=== PATIENT | female | born 1945 | race Caucasian/White ===

== ENCOUNTER 2016-10-25 05:10 | Day surgery (SDC) | payer OTHER ==
[~2016-10-25] VITALS: Ht 162.6 cm; Wt 77.1 kg
--- NOTE | ~2016-10-25 | O ---
[facility] [place] [address] OPERATIVE REPORT Name: CHENTE HAYES Room #: DEP [facility]..#: [id number] Admission: 10/25/16 Attend Phys: Liban Mallory MD Discharge: 10/25/16 Date of : 47 Report #: [id number] THIS REPORT FOR: //name// CC: Grant Mallory DATE OF SERVICE: 10/25/[address] Liban Mallory, Dr. Grant Mena. PREOPERATIVE DIAGNOSIS: A 5 cm x 3 cm skin lesion on the scalp. POSTOPERATIVE DIAGNOSIS: A 5 cm x 3 cm skin lesion on the scalp. PROCEDURE: Excision of 5 cm x 3 cm scalp lesion with complex layered closure. SURGEON: Liban Mallory M.D. ANESTHESIA: Local. DESCRIPTION OF PROCEDURE: The patient was brought to the operating room and placed on the operative table in the supine position. The scalp was prepped by trimming the hair around this lesion with a nate. I was able to trim some matted hair over this skin lesion using the scalp nate and this was included as part of the specimen. The area was then prepped and draped in a sterile fashion. Skin and subcutaneous tissue around this area was then infiltrated with 1% Xylocaine with epinephrine. An elliptical skin incision was performed around the lesion using #15 scalpel blade. Hemostasis obtained using the electrocautery. Dissection was carried down through subcutaneous tissue and around this lesion using the electrocautery. The lesion was removed and oriented for the pathologist with a double stranded nylon suture being anterior, single stranded nylon suture being to the right side of the lesion. This was then submitted to pathology for permanent study. The deep subcutaneous tissue was then reapproximated using simple interrupted 3-0 Vicryl sutures and the skin then closed with simple interrupted 3-0 nylon sutures. The wound was then dressed with antibiotic ointment. The patient was then taken to the discharge area awake, alert and in good condition. Estimated blood loss was approximately 10 mL, and the patient tolerated the procedure well. All sponge, lap and instrument counts were correct times 2. <ELECTRONICALLY SIGNED> By: Liban Mallory MD 11/07/16 1334 1410 1638 Liban Mallory MD /nt
--- NOTE | ~2016-10-25 | S ---
[facility] [place] [address] SURGICAL PATH RPT PROCEDURE Name: CHENTE HAYES Room #: DEP [facility] M.R.#: [id number] Admission: 10/25/16 Date of : 47 Discharge: 10/25/16 Report #: [id number] Path Case #: [id number] PATHOLOGY REPORT COLLECTION DATE: 10/25/2016 RECEIVED DATE: 10/25/2016 SUBMITTING PHYS: Dr. Liban Mallory OTHER PHYS: Dr. Grant Mena SPECIMEN(S) RECEIVED: A.Scalp lesion * * * * * * * * * * * * FINAL DIAGNOSIS: Skin and subcutaneous tissue, "scalp lesion," excision: - RESIDUAL SQUAMOPROLIFERATIVE LESION WITH HYPERKERATOSIS, FIBROSIS, AND DERMAL CHANGES CONSISTENT WITH PREVIOUS CRYOTHERAPY; NO MALIGNANCY IDENTIFIED AT MARGINS. (SEE COMMENT) COMMENT: The history of previous cryotherapy is noted. Reactive and regenerative changes are identified with findings consistent with a squamoproliferative lesion. No obvious malignancy is identified and no malignancy is seen at the margins. Clinical correlation is required. A traffic representative slide (block A2) is co-reviewed with Dr. Caitlin Page. (JUAN FRANCISCOW:; d/t: 10/29/16) PATHOLOGIST: Jessica Valero M.D. REPORT ELECTRONICALLY SIGNED BY: Jessica Valero M.D. DATE/TIME: 10/29/2016 21:46 * * * * * * * * * * * * GROSS PATHOLOGY: Received in formalin labeled "Chente Hayes-scalp prttpe-aoapdd-kpmttl anterior, and single strand right side," is a 3.0 x 1.7 x 0.4 cm ellipse of skin oriented with a single strand placed along one edge, designated as the right side, which will be further designated as the 3:00 margin, and double strands placed at one tip, designated as the anterior aspect, which will be further designated as the 12:00 aspect. The specimen is inked as follows: 12:00 to 3:00-yellow, 3:00 to 6:00-blue, and 12:00 and deep margin black. The epidermal surface displays a central 1.5 x 1.0 cm blood-tinged, white-henson, poorly circumscribed, granular, and depressed area. The specimen is sectioned into 12 pieces and entirely submitted in cassettes A1 through A4, with the tips placed in cassette A4. Also received is a [facility] [address] [place] [address] SURGICAL PATH RPT PROCEDURE Name: CHENTE HAYES Room #: DEP [facility].#: [id number] Admission: 10/25/16 Date of : 47 Discharge: 10/25/16 Report #: [id number] Path Case #: [id number] 2.2 x 0.7 x 0.3 cm aggregate of hair admixed with white-henson friable soft material, which is not submitted. (TTL; 10/26/2016) CLINICAL HISTORY: Scalp mass INITIAL CPT CODE(S): A; 21022 Professional services performed by [facility] at [facility] [address], [place] [address] Technical services performed by [facility] at [address] [place] [address], [address], [place] [address]. [facility] [address] [place] [address] PHONE: [phone] DIRECTOR: Keo Don M.D. * * * END OF REPORT * * *
[~2016-10-25 05:10] MED LIST: ADVAIR 100-501 EACH INH; ADVAIR HFA 230M12 GM INH; ADVAIR HFA 45MC1 AER INH; MEDROLDOSEPACK PO; TUMS PO; VENTOLIN HFA 1818 GM INH
[2016-10-25] MEDS ORDERED: NORCO 5-325 TA1 EACH PO (14:13)
== END 2016-10-25 15:03 | disposition home or self-care (01) ==
LOC: OR 05:10 → TBA 05:10 → OR 10:16
DX: D23.4 Other benign neoplasm of skin of scalp and neck (principal); L57.0 Actinic keratosis; K21.9 Gastro-esophageal reflux disease without esophagitis; J45.909 Unspecified asthma, uncomplicated; Z87.891 Personal history of nicotine dependence
CPT/HCPCS: 10086; 50010; 50101; 50386; 50403; 56524; 56526; 56527; 56528

== ENCOUNTER 2017-02-19 16:03 | Emergency (ER) | payer OTHER ==
[~2017-02-19] VITALS: Ht 162.6 cm; Wt 74.4 kg
[~2017-02-19 16:03] MED LIST changes: +NORCO 5-325 TA1 EACH PO
== END 2017-02-19 18:57 | disposition home or self-care (01) ==
LOC: ER 16:03
DX: S01.81XA Laceration without foreign body of other part of head, initial encounter (principal); S40.011A Contusion of right shoulder, initial encounter; S60.512A Abrasion of left hand, initial encounter; J45.909 Unspecified asthma, uncomplicated; K21.9 Gastro-esophageal reflux disease without esophagitis; Z91.09 Other allergy status, other than to drugs and biological substances; Z88.0 Allergy status to penicillin; Z88.2 Allergy status to sulfonamides; Z88.5 Allergy status to narcotic agent; Z88.6 Allergy status to analgesic agent; Z87.891 Personal history of nicotine dependence; W01.10XA Fall on same level from slipping, tripping and stumbling with subsequent striking against unspecified object, initial encounter; Y93.89 Activity, other specified; Y92.89 Other specified places as the place of occurrence of the external cause; Y99.9 Unspecified external cause status

== ENCOUNTER 2017-12-10 12:09 | Inpatient (IN) | payer OTHER ==
[~2017-12-10] VITALS: Ht 157.5 cm; Wt 70.3 kg
[2017-12-10] VITALS (7 sets, daily range): BP systolic 114–152; BP diastolic 62–90
--- NOTE | ~2017-12-10 | EKG ---
[address] [place] [address] ELECTROCARDIOGRAM REPORT Name: CHENTE HAYES Room #: 431-P ADM IN M.R.#: [id number] Admission: 12/10/17 Attend Phys: Sai Sequeira DO Discharge: Date of : 47 Report #: [id number] THIS REPORT FOR: //name// [facility] ED Test Date: 2017-12-10 Test Time: 12:35:52 Pat Name: CHENTE HAYES Department: Room: [facility] Gender: F Rn Palliative Care: ANGELA : 1945 Requested By: Qi Edwards Order Number: [id number] MD: John Johnson Measurements Intervals [place] Rate: 68 P: 47 TN: 168 QRS: -9 QRSD: 83 T: 8 QT: 386 QTc: 411 Interpretive Statements Sinus rhythm Low voltage, precordial leads Compared to ECG 01/21/2015 15:40:35 Low QRS voltage now present Electronically Signed On 12-10-2017 19:24:04 FOUNDRY PROCESS ENGINEER by John Johnson [email or web address] <ELECTRONICALLY SIGNED> By: John Johnson MD 12/10/17 1924 1235 1235 John Johnson MD /EPI
--- NOTE | ~2017-12-10 | HC ---
[facility] [address] CONSULTATION Name: CHENTE HAYES Room #: 431-P [facility] IN M.R.#: [id number] Admission: 12/10/17 Attend Phys: Sai Sequeira DO Discharge: 12/13/17 Date of : 46 Report #: [id number] THIS REPORT FOR: //name// CC: Sai Mena DATE OF SERVICE: 12/11/2017 REFERRING PHYSICIAN: Sai Sequeira DO. PRIMARY CARE PHYSICIAN: Grant Mena MD. REASON FOR REFERRAL: Dyspnea. HISTORY OF PRESENT ILLNESS: The patient is a 72-year-old white female, who presents to Emergency Room with progressive dyspnea. A Pulmonary consultation was requested. The patient states that she was hospitalized at [facility] with influenza B. She was just discharged yesterday. She was seen in the office. She was complaining of shortness of breath at that time. She was then referred to [facility] Emergency Room. She states that she is more fatigued and more short of breath. Otherwise, denies any chest pain, night sweats or chills, nausea, vomiting, or diarrhea. PAST MEDICAL HISTORY: Notable for asthma, hiatal hernia, gastroesophageal reflux disease. PAST SURGICAL HISTORY: Status post left knee surgery. ALLERGIES: PENICILLIN, WHICH CAUSES THROAT SWELLING, CODEINE CAUSES NAUSEA AND VOMITING, SULFA CAUSES NAUSEA AND VOMITING, TRAMADOL CAUSES NAUSEA OR VOMITING. SHE IS ALSO ALLERGIC TO ANIMAL DANDER, REACTIONS UNSPECIFIED. HOME MEDICATIONS: Include hydrocodone, losartan, Advair, Tums. FAMILY HISTORY: Noncontributory. SOCIAL HISTORY: She has smoked in the past, but quit years ago. She denies any alcohol use. REVIEW OF SYSTEMS: As mentioned above. Otherwise 10-point system review negative. PHYSICAL EXAMINATION: [facility] [address] [place] [address] CONSULTATION Name: CHENTE HAYES Room #: 431-P [facility] [place] [facility]#: [id number] Admission: 12/10/17 Attend Phys: Sai Sequeira DO Discharge: 12/13/17 Date of : 46 Report #: [id number] GENERAL: She is awake, alert, in no distress. VITAL SIGNS: Temperature is 98.6 degrees Fahrenheit, pulse is 80, respiratory rate is 18, blood pressure is 137/83 mmHg, saturation 97%. HEENT: Unremarkable. NECK: Supple without any lymphadenopathy or thyromegaly. CHEST: Breath sounds are fair bilaterally. Mild expiratory wheezes. CARDIOVASCULAR: Normal S1, S2. There are no murmurs or gallop. There is no JVD and no carotid bruit. Pulses are 2+/4+ bilaterally. ABDOMEN: Soft, nontender. No organomegaly or masses felt. GENITOURINARY AND RECTAL: Deferred. EXTREMITIES: There is no edema, cyanosis or clubbing. LABORATORY DATA: Chest x-ray shows bilateral small nodules, which appears to be granulomas. These nodules are previously noted in 2015. These are felt to be calcified granulomas. Lactic acid is 2.1. Procalcitonin level is less than 0.5. EKG shows no acute changes. Electrolytes are normal. CBC: WBC 6500, hemoglobin is 14.2, platelets are normal. IMPRESSION: 1. Acute respiratory distress in this 72-year-old white female. She was found to be hypoxic in the Emergency Room. Chest x-ray is grossly unremarkable. Etiology probably secondary to residual influenza B, possible early pneumonia. 2. Recent influenza B. 3. Generalized weakness due to above. 4. History of hypertension. RECOMMENDATION: I agree with current treatment including broad-spectrum antibiotics, corticosteroids for bronchospasm along with bronchodilators. DVT and GI prophylaxis recommended. The patient would benefit from pulmonary evaluation as an outpatient once she has improved. <ELECTRONICALLY SIGNED> By: Zan Salinas MD 12/16/17 1409 1620 3738 Zan Salinas MD /nt
[2017-12-10] MEDS ORDERED: COZAAR 25 MG TA25 M1 PO (12:16)
[2017-12-10 13:01] LABS: ABSOLUTE NEUTROPHILS 4.3 thou/uL (1.4-8.2); BASOPHILS 1.2 % (0.0-2.0); EOSINOPHILS 0.6 % (0.0-3.0); HEMATOCRIT 41.4 % (37.0-47.0); HEMOGLOBIN 14.2 gm/dL (12.0-15.0); LYMPHOCYTES 24.1 % (24.0-44.0); MCH 30.8 pg (26.0-34.0); MCHC 34.2 g/dL (28.0-37.0); MONOCYTES 8.6 % (1.0-8.0); PLATELET COUNT 275 thou/uL (150-400); POLYS 65.5 % (36.0-66.0); RBC 4.59 mil/uL (4.20-5.00); RDW 13.8 % (10.5-14.5); WBC 6.5 thou/uL (4.0-11.0)
[2017-12-10 13:10] LABS: CALCIUM 9.1 mg/dL (8.5-10.1); CREATININE 0.8 mg/dL (0.6-1.0); POTASSIUM 4.3 mmol/L (3.5-5.1)
[2017-12-10 14:08] LABS: URINE BILIRUBIN NEGATIVE (Negative); URINE BLOOD NEGATIVE (Negative); URINE CLARITY CLEAR; URINE COLOR YELLOW; URINE GLUCOSE-RANDOM* NEGATIVE (Negative); URINE KETONES TRACE (Negative); URINE LEUKOCYTES NEGATIVE (Negative); URINE NITRITE NEGATIVE (Negative); URINE PROTEIN (DIPSTICK) NEGATIVE (Negative); URINE SPECIFIC GRAVITY <= 1.005 (1.005-1.035); URINE UROBILINOGEN 0.2 E.U./dl (0.2-1.0)
[2017-12-10 15:55] LABS: CHOLESTEROL 161 mg/dL (<200); FOLIC ACID 19.4 ng/mL (8.6-58.9); SERUM ASSESSMENT Clear; TRIGLYCERIDE 121 mg/dL (<150); TSH 1.747 uIU/mL (0.358-3.740); VLDL 24 mg/dL (<40)
[2017-12-10 15:56] LABS: HDL CHOLESTEROL 38 mg/dL (>40); LDL CHOLESTEROL 99 mg/dL (<100); TC:HDL 4.2 Ratio (Not establshd)
[2017-12-11 03:54] LABS: CALCIUM 8.7 mg/dL (8.5-10.1); CREATININE 0.9 mg/dL (0.6-1.0); MAGNESIUM 1.9 mg/dL (1.8-2.4); POTASSIUM 4.5 mmol/L (3.5-5.1)
[2017-12-11 04:26] VITALS: BP 126/87
[2017-12-11 08:19] VITALS: BP 137/83
[2017-12-11 20:02] VITALS: BP 128/76
[2017-12-12 01:57] VITALS: BP 128/76
[2017-12-12 04:00] VITALS: BP 106/67
[2017-12-12 07:25] VITALS: BP 96/58
[2017-12-12 16:14] VITALS: BP 127/61
[2017-12-12 19:45] VITALS: BP 132/64
[2017-12-13 04:19] VITALS: BP 119/64
[2017-12-13 05:56] LABS: ABSOLUTE NEUTROPHILS 10.9 thou/uL (1.4-8.2); BASOPHILS 0.1 % (0.0-2.0); HEMATOCRIT 35.1 % (37.0-47.0); LYMPHOCYTES 6.3 % (24.0-44.0); MCH 30.1 pg (26.0-34.0); MCV 91.1 fL (80.0-100.0); MONOCYTES 2.6 % (1.0-8.0); PLATELET COUNT 328 thou/uL (150-400); RBC 3.86 mil/uL (4.20-5.00); RDW 14.2 % (10.5-14.5)
[2017-12-13 05:59] LABS: HEMOGLOBIN 11.6 gm/dL (12.0-15.0)
[2017-12-13 06:07] LABS: CALCIUM 8.3 mg/dL (8.5-10.1); CREATININE 0.8 mg/dL (0.6-1.0); POTASSIUM 4.3 mmol/L (3.5-5.1)
[2017-12-13 07:32] VITALS: BP 132/68
[2017-12-13] MEDS ORDERED: PREDNISONE 10 M10 MG PO (08:35)
[2017-12-13] MEDS ORDERED: LEVAQUIN 500 M500 M1 PO (08:35)
[2017-12-13 15:10] VITALS: BP 146/79
[2017-12-13 17:27] VITALS: BP 146/79
== END 2017-12-13 18:25 | disposition home or self-care (01) | DRG 193 ==
LOC: ER 12:09 → 4E 13:29 → EROBS 13:29 → 4E 16:38
PROVIDERS: Emergency Medicine; Family Medicine; Nurse Practitioner
DX: J18.9 Pneumonia, unspecified organism (principal); J96.21 Acute and chronic respiratory failure with hypoxia; J45.909 Unspecified asthma, uncomplicated; F41.9 Anxiety disorder, unspecified; K21.9 Gastro-esophageal reflux disease without esophagitis; Z88.6 Allergy status to analgesic agent; Z88.0 Allergy status to penicillin; Z88.2 Allergy status to sulfonamides; Z88.8 Allergy status to other drugs, medicaments and biological substances; Z87.891 Personal history of nicotine dependence; Z79.899 Other long term (current) drug therapy; Z28.21 Immunization not carried out because of patient refusal
CPT/HCPCS: 10183

== ENCOUNTER 2017-12-15 16:38 | Inpatient (IN) | payer OTHER ==
[~2017-12-15] VITALS: Ht 157.5 cm; Wt 63.5 kg
--- NOTE | ~2017-12-15 | EKG ---
[address] [address] ELECTROCARDIOGRAM REPORT Name: CHENTE HAYES [facility] [id number] Admission: 12/15/17 Attend Phys: Discharge: Date of : 47 Report #: [id number] THIS REPORT FOR: //name// [facility] ED Test Date: 2017-12-15 Test Time: 17:44:16 Pat Name: CHENTE HAYES Department: Room: Gender: F Associate Software Development Engineer: Javier MAE : 1945 Requested By: Brayan Gallego Order Number: [id number] MD: Measurements Intervals [place] Rate: 92 P: 19 ME: 135 QRS: -25 QRSD: 83 T: 4 QT: 359 QTc: 445 Interpretive Statements Sinus rhythm Borderline left axis deviation Compared to ECG 12/10/2017 12:35:52 No significant changes [email or web address] By: 43 174 Epiphany MD Socrates /EPI
[~2017-12-15 16:38] MED LIST changes: +COZAAR 25 MG TA25 M1 PO; +LEVAQUIN 500 M500 M1 PO; +PREDNISONE 10 M10 MG PO
[2017-12-15 17:27] LABS: HEMATOCRIT 40.9 % (37.0-47.0); MCH 30.9 pg (26.0-34.0); MCHC 33.9 g/dL (28.0-37.0); MCV 91.1 fL (80.0-100.0); RBC 4.49 mil/uL (4.20-5.00); RDW 14.2 % (10.5-14.5); WBC 9.8 thou/uL (4.0-11.0)
[2017-12-15 17:30] LABS: CALCIUM 8.9 mg/dL (8.5-10.1); CREATININE 1.1 mg/dL (0.6-1.0); POTASSIUM 4.2 mmol/L (3.5-5.1)
[2017-12-15 17:30] LABS: HEMOGLOBIN 13.9 gm/dL (12.0-15.0); PLATELET COUNT 464 thou/uL (150-400)
[2017-12-15 17:32] VITALS: BP 129/78
[2017-12-15 17:49] LABS: ABSOLUTE NEUTROPHILS 7.6 thou/uL (1.4-8.2)
[2017-12-15 19:13] LABS: URINE BILIRUBIN NEGATIVE (Negative); URINE BLOOD NEGATIVE (Negative); URINE CLARITY CLEAR; URINE COLOR YELLOW; URINE GLUCOSE-RANDOM* NEGATIVE (Negative); URINE KETONES NEGATIVE (Negative); URINE LEUKOCYTES NEGATIVE (Negative); URINE NITRITE NEGATIVE (Negative); URINE PROTEIN (DIPSTICK) NEGATIVE (Negative); URINE SPECIFIC GRAVITY <= 1.005 (1.005-1.035); URINE UROBILINOGEN 0.2 E.U./dl (0.2-1.0)
[2017-12-15 19:35] VITALS: BP 112/73
[2017-12-15 19:39] VITALS: BP 125/51
[2017-12-15 20:35] VITALS: BP 134/82
[2017-12-16 04:28] VITALS: BP 138/74
[2017-12-16 07:15] LABS: HEMATOCRIT 37.3 % (37.0-47.0); HEMOGLOBIN 12.6 gm/dL (12.0-15.0); MCH 30.7 pg (26.0-34.0); MCHC 33.9 g/dL (28.0-37.0); MCV 90.6 fL (80.0-100.0); RBC 4.12 mil/uL (4.20-5.00); RDW 13.9 % (10.5-14.5); WBC 8.3 thou/uL (4.0-11.0)
[2017-12-16 07:25] LABS: CALCIUM 8.2 mg/dL (8.5-10.1); CREATININE 0.9 mg/dL (0.6-1.0)
[2017-12-16 08:00] VITALS: BP 105/64
[2017-12-16 14:36] LABS: URINE BILIRUBIN NEGATIVE (Negative); URINE BLOOD NEGATIVE (Negative); URINE CLARITY CLEAR; URINE COLOR YELLOW; URINE GLUCOSE-RANDOM* NEGATIVE (Negative); URINE KETONES NEGATIVE (Negative); URINE LEUKOCYTES-REFLEX NEGATIVE (Negative); URINE NITRITE-REFLEX NEGATIVE (Negative); URINE PROTEIN (DIPSTICK) NEGATIVE (Negative); URINE SPECIFIC GRAVITY <= 1.005 (1.005-1.035); URINE UROBILINOGEN 0.2 E.U./dl (0.2-1.0)
[2017-12-16 16:00] VITALS: BP 100/67
[2017-12-16 19:11] VITALS: BP 98/63
[2017-12-17 04:06] LABS: HEMATOCRIT 36.7 % (37.0-47.0); HEMOGLOBIN 12.4 gm/dL (12.0-15.0); MCHC 33.9 g/dL (28.0-37.0); MCV 91.4 fL (80.0-100.0); PLATELET COUNT 399 thou/uL (150-400); RBC 4.01 mil/uL (4.20-5.00); RDW 14.2 % (10.5-14.5); WBC 6.7 thou/uL (4.0-11.0)
[2017-12-17 04:35] LABS: ALBUMIN 2.6 g/dL (3.4-5.0); CALCIUM 8.1 mg/dL (8.5-10.1); CREATININE 0.9 mg/dL (0.6-1.0); POTASSIUM 4.2 mmol/L (3.5-5.1); TOTAL BILIRUBIN 0.6 mg/dL (<0.1-1.0); TOTAL PROTEIN 5.3 g/dL (6.4-8.2)
[2017-12-17 04:46] VITALS: BP 129/68
[2017-12-17 07:00] LABS: ABSOLUTE NEUTROPHILS 3.5 thou/uL (1.4-8.2)
[2017-12-17 15:51] VITALS: BP 105/60
[2017-12-17 19:02] VITALS: BP 99/70
[2017-12-18 06:15] LABS: ABSOLUTE NEUTROPHILS 3.7 thou/uL (1.4-8.2); BASOPHILS 0.4 % (0.0-2.0); EOSINOPHILS 3.4 % (0.0-3.0); HEMATOCRIT 36.8 % (37.0-47.0); HEMOGLOBIN 12.6 gm/dL (12.0-15.0); LYMPHOCYTES 33.6 % (24.0-44.0); MCH 31.1 pg (26.0-34.0); MCHC 34.2 g/dL (28.0-37.0); MCV 90.8 fL (80.0-100.0); MONOCYTES 10.8 % (1.0-8.0); PLATELET COUNT 415 thou/uL (150-400); POLYS 51.8 % (36.0-66.0); RBC 4.06 mil/uL (4.20-5.00); WBC 7.1 thou/uL (4.0-11.0)
[2017-12-18 06:28] LABS: CALCIUM 8.7 mg/dL (8.5-10.1); POTASSIUM 4.1 mmol/L (3.5-5.1)
[2017-12-18 08:00] VITALS: BP 103/64
[2017-12-18 12:43] VITALS: BP 103/64
[2017-12-19] MEDS ORDERED: PROAIR RESPICL90 MCG INH (15:25)
[2017-12-19] MEDS ORDERED: ADVAIR 250-501 EACH INH (15:26)
== END 2017-12-18 16:01 | disposition home or self-care (01) | DRG 682 ==
LOC: ER 16:38 → 4S 19:27 → EROBS 19:27 → 4S 20:10 → ENTRNSPT 12-18 15:21 → EDTRNSPTSTS 12-18 15:23 → 4S 12-18 16:01
PROVIDERS: Hospitalist; Nurse Practitioner; Nurse Practitioner Family
DX: N17.9 Acute kidney failure, unspecified (principal); E43 Unspecified severe protein-calorie malnutrition; E87.1 Hypo-osmolality and hyponatremia; J45.909 Unspecified asthma, uncomplicated; E86.0 Dehydration; R35.0 Frequency of micturition; Z60.2 Problems related to living alone; J06.9 Acute upper respiratory infection, unspecified; K21.9 Gastro-esophageal reflux disease without esophagitis; I10 Essential (primary) hypertension; Z88.6 Allergy status to analgesic agent; Z79.899 Other long term (current) drug therapy; Z88.0 Allergy status to penicillin; Z88.8 Allergy status to other drugs, medicaments and biological substances; Z87.891 Personal history of nicotine dependence; Z28.21 Immunization not carried out because of patient refusal

== ENCOUNTER 2017-12-19 15:17 | Emergency (ER) | payer OTHER ==
[~2017-12-19] VITALS: Ht 162.6 cm; Wt 71.7 kg
--- NOTE | ~2017-12-19 | EKG ---
[address] [address] ELECTROCARDIOGRAM REPORT Name: CHENTE HAYES Room #: 170-2 ADM IN M.R.#: [id number] Admission: 12/19/17 Attend Phys: Gerardo Christie MD Discharge: Date of : 46 Report #: [id number] THIS REPORT FOR: //name// [facility] ED Test Date: 2017-12-19 Test Time: 16:15:56 Pat Name: CHENTE HAYES Department: Room: 170 Gender: F Sales Commissions Analyst: Norma ORLANDO : 1945 Requested By: Lorie Cotton Order Number: [id number] MD: Jason Rivas Measurements Intervals [place] Rate: 76 P: 29 [place]: 149 QRS: -18 QRSD: 87 T: 2 QT: 372 QTc: 419 Interpretive Statements Sinus rhythm Borderline left axis deviation Compared to ECG 12/15/2017 17:44:16 No significant changes Electronically Signed On 12-20-2017 7:58:46 CHRONIC DISEASE MANAGER by Jason Rivas [email or web address] <ELECTRONICALLY SIGNED> By: Jason Rivas MD, [facility] 12/20/17 0758 1615 1615 Jason Rivas MD, [facility] /EPI
[2017-12-19 15:21] VITALS: BP 120/79
[2017-12-19] MEDS ORDERED: PROAIR RESPICL90 MCG INH (15:25)
[2017-12-19] MEDS ORDERED: ADVAIR 250-501 EACH INH (15:26)
[2017-12-19 15:47] LABS: URINE BILIRUBIN NEGATIVE (Negative); URINE BLOOD NEGATIVE (Negative); URINE CLARITY CLEAR; URINE COLOR YELLOW; URINE GLUCOSE-RANDOM* NEGATIVE (Negative); URINE KETONES NEGATIVE (Negative); URINE LEUKOCYTES NEGATIVE (Negative); URINE NITRITE NEGATIVE (Negative); URINE PROTEIN (DIPSTICK) NEGATIVE (Negative); URINE SPECIFIC GRAVITY <= 1.005 (1.005-1.035); URINE UROBILINOGEN 0.2 E.U./dl (0.2-1.0)
[2017-12-19 15:59] LABS: ABSOLUTE NEUTROPHILS 7.9 thou/uL (1.4-8.2); BASOPHILS 0.7 % (0.0-2.0); EOSINOPHILS 1.4 % (0.0-3.0); HEMATOCRIT 39.1 % (37.0-47.0); HEMOGLOBIN 13.6 gm/dL (12.0-15.0); LYMPHOCYTES 19.6 % (24.0-44.0); MCH 31.1 pg (26.0-34.0); MCHC 34.7 g/dL (28.0-37.0); MCV 89.5 fL (80.0-100.0); MONOCYTES 7.5 % (1.0-8.0); PLATELET COUNT 463 thou/uL (150-400); POLYS 70.8 % (36.0-66.0); RBC 4.37 mil/uL (4.20-5.00); RDW 13.9 % (10.5-14.5); WBC 11.1 thou/uL (4.0-11.0)
[2017-12-19 16:13] LABS: ANION GAP 9 mmol/L (7-16); BUN 23 mg/dL (7-18); CALCIUM 8.8 mg/dL (8.5-10.1); CHLORIDE 96 mmol/L (98-107); CO2 24 mmol/L (21-32); CREATININE 1.1 mg/dL (0.6-1.0); GLUCOSE 94 mg/dL (74-106); POTASSIUM 3.9 mmol/L (3.5-5.1); SODIUM 129 mmol/L (136-145)
[2017-12-19 16:23] LABS: ALBUMIN 3.3 g/dL (3.4-5.0); SGOT 22 U/L (15-37); SGPT 42 U/L (30-65); TOTAL BILIRUBIN 0.9 mg/dL (<0.1-1.0); TOTAL PROTEIN 6.8 g/dL (6.4-8.2); TROPONIN-I < 0.04 ng/mL (<0.06)
[2017-12-19 19:20] VITALS: BP 118/73
[2017-12-19 23:55] VITALS: BP 126/73
[2017-12-20 04:57] LABS: HEMATOCRIT 37.5 % (37.0-47.0); HEMOGLOBIN 12.8 gm/dL (12.0-15.0); MCHC 34.2 g/dL (28.0-37.0); MCV 90.8 fL (80.0-100.0); RBC 4.12 mil/uL (4.20-5.00); WBC 5.5 thou/uL (4.0-11.0)
[2017-12-20 05:04] LABS: CALCIUM 8.6 mg/dL (8.5-10.1); POTASSIUM 4.5 mmol/L (3.5-5.1)
[2017-12-20 05:10] LABS: % SATURATION 11 % (20-39); IRON 32 ug/dL (50-170); TIBC 292 ug/dL (250-450)
[2017-12-20 05:35] LABS: FOLIC ACID 14.3 ng/mL (8.6-58.9)
[2017-12-20 09:29] LABS: CALCIUM 8.8 mg/dL (8.5-10.1); CREATININE 0.9 mg/dL (0.6-1.0); MAGNESIUM 2.1 mg/dL (1.8-2.4); POTASSIUM 4.4 mmol/L (3.5-5.1)
[2017-12-20 14:12] VITALS: BP 123/67
[2017-12-20 14:37] VITALS: BP 110/75
== END 2017-12-20 14:39 | disposition home or self-care (01) ==
LOC: ER 15:17 → EROBS 17:05
PROVIDERS: Internal Medicine; Nurse Practitioner Family
DX: E87.1 Hypo-osmolality and hyponatremia (principal); E86.0 Dehydration; J45.909 Unspecified asthma, uncomplicated; K21.9 Gastro-esophageal reflux disease without esophagitis; I10 Essential (primary) hypertension; Z88.0 Allergy status to penicillin; Z88.5 Allergy status to narcotic agent; Z88.2 Allergy status to sulfonamides; Z88.6 Allergy status to analgesic agent; Z87.891 Personal history of nicotine dependence

== ENCOUNTER 2019-05-31 15:05 | Inpatient (IN) | payer OTHER ==
[~2019-05-31] VITALS: Ht 162.6 cm; Wt 77.1 kg
--- NOTE | ~2019-05-31 | HC ---
[facility] [place] [address] CONSULTATION Name: CHENTE HAYES Room #: 459-P ADM IN M.R.#: [id number] Admission: 05/31/19 Attend Phys: Raeann Akhtar Discharge: Date of : 46 Report #: [id number] THIS REPORT FOR: //name// CC: Raeann Millsen Rajesh DATE OF SERVICE: 05/31/2019 REASON FOR CONSULTATION: Right hip fracture and pelvis fracture. HISTORY OF PRESENT ILLNESS: The patient is a 73-year-old female who tripped on a ____ house and fell sustaining an injury to her right hip. She denied loss of consciousness. Denies any other new extremity complaints. PAST MEDICAL HISTORY: Significant for hypertension and hyperlipidemia. MEDICATIONS: Include pravastatin and some type of medication for hypertension. ALLERGIES: No known drug allergies. She reports a significant intolerance to narcotic pain medications, which produce nausea in this patient. SOCIAL HISTORY: She lives by herself. Does not use any ambulatory aids. Denies smoking or drinking alcohol. PAST SURGICAL HISTORY: Left knee arthroscopy. REVIEW OF SYSTEMS: MUSCULOSKELETAL: See HPI. NEUROLOGIC: Denies numbness or tingling that is new, reports a history of neuropathy. LABORATORY STUDIES: Done on 05/31/2019 show white blood cell count 7.4, hemoglobin 14.6, hematocrit 41.7, platelet count 383. Chemistry is grossly normal. PHYSICAL EXAMINATION: GENERAL: The patient is alert and oriented, interacts appropriately. She is a well-developed, well-nourished female in no acute distress. VITAL SIGNS: Most recent vital signs show a temperature of 36.5, heart rate is 93, respiratory rate 17, blood pressure 152/90, pulse oximetry is 98% on room air. EXTREMITIES: Examination of her bilateral upper extremities, she is distally neurovascularly intact. Skin is clean, dry and intact. Gross motor and sensory intact. She moves her bilateral upper extremities at the shoulder, elbow, forearm, wrist and hand without pain. There is no tenderness to palpation. She has some mild diffuse arthritic changes. Right lower extremity exam: [facility] [address] [place] [address] CONSULTATION Name: CHENTE HAYES Room #: 459-P [facility] IN M.R.#: [id number] Admission: 05/31/19 Attend Phys: Raeann Akhtar Discharge: Date of : 46 Report #: [id number] is intact to light touch throughout. She has brisk capillary refill. EHL, FHL, dorsiflexion and plantar flexion are intact. She has no tenderness to palpation to the knee, leg, ankle or foot. No pain with range of motion of the right knee, ankle or foot. There is significant pain with attempted right hip range of motion. Left lower extremity exam: Sensation is intact to light touch throughout. She has brisk capillary refill. EHL, FHL, dorsiflexion and plantar flexion are intact. She has grossly motor and sensory intact. There is no pain with range of motion of the left hip, knee, ankle or foot. RADIOGRAPHS: AP pelvis and AP and lateral of the right hip show a valgus impacted femoral neck fracture. There also appears to be a right inferior pubic ramus fracture. IMPRESSION AND PLAN: 1. Right valgus impacted femoral neck fracture. Plan for closed reduction and percutaneous screw fixation tomorrow, most likely by my partner, Dr. Hilario Castellanos. I discussed typical procedure as well as postoperative course. The risks, benefits, alternatives and complications were discussed including but not limited to infection, damage to vessels or nerves, nonunion, malunion, hardware failure, hardware irritation, stiffness, decreased ambulatory level, and blood clots. Informed consent was obtained. I encouraged her to ask further questions in the preoperative holding area. 2. Right inferior pubic ramus fracture, we will treat this nonoperatively. Thank you very much for allowing me to participate in the care of this patient. By: 2030 2307 Irene Madrigal MD /nt
[2019-05-31 15:05] VITALS: BP 142/87
[~2019-05-31 15:05] MED LIST changes: +ADVAIR 250-501 EACH INH; +PROAIR RESPICL90 MCG INH
[2019-05-31] MEDS ORDERED: COZAAR 25 MG TA25 M1 PO (15:17)
[2019-05-31] MEDS ORDERED: PRAVACHOL20 MG PO (15:17)
[2019-05-31 15:45] LABS: ABSOLUTE NEUTROPHILS 5.6 thou/uL (1.4-8.2); BASOPHILS 1.1 % (0.0-2.0); EOSINOPHILS 1.2 % (0.0-3.0); HEMATOCRIT 41.7 % (37.0-47.0); HEMOGLOBIN 14.6 gm/dL (12.0-15.0); LYMPHOCYTES 15.3 % (24.0-44.0); MCH 31.9 pg (26.0-34.0); MCV 91.2 fL (80.0-100.0); MONOCYTES 6.6 % (1.0-8.0); PLATELET COUNT 383 thou/uL (150-400); POLYS 75.8 % (36.0-66.0); RBC 4.58 mil/uL (4.20-5.00); RDW 12.9 % (10.5-14.5); WBC 7.4 thou/uL (4.0-11.0)
[2019-05-31 15:46] LABS: CALCIUM 9.3 mg/dL (8.5-10.1); CREATININE 1.1 mg/dL (0.6-1.0); POTASSIUM 3.7 mmol/L (3.5-5.1)
[2019-05-31 15:52] LABS: ALBUMIN 3.6 g/dL (3.4-5.0); TOTAL BILIRUBIN 0.5 mg/dL (<0.1-1.0); TOTAL PROTEIN 7.4 g/dL (6.4-8.2)
[2019-05-31 16:34] LABS: URINE BILIRUBIN NEGATIVE (Negative); URINE BLOOD NEGATIVE (Negative); URINE CLARITY CLEAR; URINE COLOR YELLOW; URINE GLUCOSE-RANDOM* NEGATIVE (Negative); URINE KETONES NEGATIVE (Negative); URINE LEUKOCYTES NEGATIVE (Negative); URINE NITRITE NEGATIVE (Negative); URINE PROTEIN (DIPSTICK) NEGATIVE (Negative); URINE UROBILINOGEN 0.2 E.U./dl (0.2-1.0)
[2019-05-31 16:47] VITALS: BP 142/87
[2019-05-31 18:00] VITALS: BP 151/91
--- NOTE | 2019-05-31 21:43 | NUR ---
ASSUMED CARE OF PATIENT AT 1830, PATIENT A&OX4, PATIENT STABLE, NO SOA OR CHEST PAIN. REPORT GIVEN TO ONCOMING NURSE TO COMPLETE ASSESSMENT.
[2019-06-01 03:36] VITALS: BP 109/69
--- NOTE | 2019-06-01 05:25 | NUR ---
Pt. rested quietly at intervals during the night when checked on during frequent rounds. She does c/o right hip pain and was given pain meds (see emar) with some relief of pain. No c/o nausea. Admission assessment and history is completed. Bed alarm is on.
[2019-06-01 13:30] VITALS: BP 116/77
[2019-06-01 14:00] VITALS: BP 124/89
[2019-06-01 16:40] VITALS: BP 114/72
--- NOTE | 2019-06-01 18:16 | NUR ---
PT STABLE THROUGHOUT SHIFT. PT HAD SURGERY ON HIP FX WHICH SHE TOLERATED WELL. SOME C/O PAIN WHICH PAIN MED. ALLEVIATED. SCD'S IN PLACE, PT RESTING COMFORTABLY.
[2019-06-01 19:52] VITALS: BP 114/72
[2019-06-01 23:50] VITALS: BP 113/69
[2019-06-02 02:24] VITALS: BP 119/70
--- NOTE | 2019-06-02 03:30 | NUR ---
patient aox4 makes needs known. pain controlled this shift. scd on. patient c/o of gas called aerosol supervisor new order of maloox. patient in bed in bed asleep at this time breathing regular and unlaboured.
[2019-06-02 07:17] VITALS: BP 119/71
--- NOTE | 2019-06-02 08:09 | O ---
[facility] [place] [address] OPERATIVE REPORT Name: CHENTE HAYES Room #: 459-P ADM IN M.R.#: [id number] Admission: 05/31/19 Attend Phys: Raeann Akhtar Discharge: Date of : 47 Report #: [id number] THIS REPORT FOR: //name// CC: Raeann Mena DATE OF SERVICE: 06/01/2019 PREOPERATIVE DIAGNOSIS: Fracture, right femoral neck. POSTOPERATIVE DIAGNOSIS: Fracture, right femoral neck. PROCEDURE: Percutaneous screw stabilization, right femoral neck fracture. HISTORY: This active, independent 73-year-old female stumbled at home injuring the right hip. She sustained no other injuries. She notes that she has not had significant hip pain in the past, although she admits to some mild generalized arthritis symptoms. Her preoperative x-rays reveal a mildly impacted fracture of the femoral neck in slight valgus position, which appears reasonably stable. She has good joint cartilage space and no other significant injuries. I have discussed with the patient treatment options including hemiarthroplasty or total hip replacement as well as possible percutaneous screw stabilization. I have explained the potential risks and benefits of each approach. She notes that she has really not had significant hip discomfort in the past and does not feel she wants to consider total joint replacement. She is hoping to avoid hemiarthroplasty as well if possible. Therefore, she prefers a percutaneous screw stabilization procedure. I have noted that the fracture is slightly impacted, but in stable valgus position, and I think there is a good chance this will heal in with screw fixation. She understands, however, there is some possibility that fracture may fail to unite or may shift, and therefore, further surgery in the future might be necessary. DESCRIPTION OF PROCEDURE: The patient was taken to the operating room where she was placed under general anesthesia. Prophylactic intravenous antibiotics were administered. She was positioned on the fracture table with gentle longitudinal traction and slight internal rotation. The alignment of the fracture was checked with C-arm and appeared to be unchanged. The fracture remains mildly impacted and in slight valgus position without significant tilt or angulation on the lateral view. The lateral aspect of the hip and thigh were then meticulously prepped and draped. A small skin incision was made over the lateral thigh. Two guidewires were positioned in the femoral neck and head. She is fairly small and I did not feel I could get a third screw in without jeopardizing placement. The guidewires were measured and two 7.5 mm diameter cancellous screws were then placed using an 80 mm length and a 90 mm length. These were brought up as close to the subchondral bone as possible to engage good secure fixation. Their position was checked on both AP and lateral views [address] [address] OPERATIVE REPORT Name: CHENTE HAYES Room #: 459-P [facility] IN M.R.#: [id number] Admission: 05/31/19 Attend Phys: Raeann Akhtar Discharge: Date of : 47 Report #: [id number] and appeared to be satisfactory. The fracture seems to be stable and in good position with this additional screw fixation. The small wound was then copiously irrigated and closed using 2-0 Monocryl and skin bolivar. A sterile dressing was applied. The patient was awakened and returned to recovery room in good condition. <ELECTRONICALLY SIGNED> By: Hilario Castellanos MD 06/02/19 0809 1150 1216 Hilario Castellanos MD /nt
--- NOTE | 2019-06-02 14:48 | NUR ---
PT ADMITTED RELATED TO RT HIP FX S/P ORIF. CM REVIEWED CHART AND SPOKE WITH CARE TEAM. CM MET WITH PT AT BEDSIDE THIS DAY. PT IS A&O X4. CM ROLE INTRODUCED. PT INDICATED SHE LIVES IN AN APARTMENT ALONE IN A SENIOR COMMUNITY CALLED [facility]. 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 PT INDICATED 1 THERSHOLD TO ENTER AND NO STEPS INSIDE. PT INDICATED NO HH, OP, OR SKILLED REHAB HX. CM SPOKE WITH PT ABOUT POST ACUTE CARE STAY IF NEEDED AND SHE IS RECEPTIVE AND WOULD PREFER [facility]. [facility] IS FOLLOWING. CM TO FOLLOW INDICATED WITH DC PLANNING.
--- NOTE | 2019-06-02 16:56 | NUR ---
PATIENT SEEN BY CRISTIANO THOMPSON NP WITH DR. MUKHERJEE. PATIENT IS A CANDIDATE FOR ACUTE REHAB AND CAN BE ACCEPTED TO [address] [place] [address] WHEN MEDICALLY STABLE TO DISCHARGE. THANK YOU FOR THIS REFERRAL.
--- NOTE | 2019-06-02 17:10 | EKG ---
[place] [address] [facility] [employer] [place] [address] ELECTROCARDIOGRAM REPORT Name: CHENTE HAYES Room #: 459-P ADM IN M.R.#: [id number] Admission: 05/31/19 Attend Phys: Raeann Akhtar Discharge: Date of : 47 Report #: [id number] THIS REPORT FOR: //name// [facility] ED Test Date: 2019-05-31 Test Time: 16:01:58 Pat Name: CHENTE HAYES Department: Room: 45 Gender: F Bracelet And Brooch Maker: KAIMLA : 1945 Requested By: Lorie Cotton Order Number: [id number] MD: Jason Rivas Measurements Intervals [place] Rate: 87 P: 54 [place]: 161 QRS: -5 QRSD: 90 T: 13 QT: 359 QTc: 432 Interpretive Statements Sinus rhythm Abnormal R-wave progression, early transition Compared to ECG 12/19/2017 16:15:56 No significant change was found Electronically Signed On 06-02-2019 17:10:03 CDT by Jason Rivas [email or web address] <ELECTRONICALLY SIGNED> By: Jason Rivas MD, [facility] 06/02/19 171 160 160 Jason Rivas MD, [facility] /EPI
[2019-06-02 19:19] VITALS: BP 129/68
--- NOTE | 2019-06-02 19:49 | NUR ---
Received awake on bed. A+Ox4. On O2 at 2lpm via nasal cannula/ On regular diet- able to tolerate diet, no nausea, vomiting and abdominal pain noted. With beltran in place- draining well, output measured and recorded accordingly. With IVF at 75cc/hr, infusing well at R AC. Pt visited by relative/friend today. Pt seen by Dr Castellanos today- for PT today for walker, partial wt bearing, PT staff informed. Post-op R hip surgical wound, dressing C/D/I. With SCDs, TEDs and ice packs on. Assisted in ADLs. Pt seen by Dr Akhtar, for SNF placement- CM aware. As per Corie- infection control nurse- beltran cath to be removed 2 days post op, due to be removed tomorrow 06/03- skeet operator nurse informed. Pt complained of constipation, due laxatives given as prescribed. Falls risk- falls bundle in place. Rehab RN OBSERVATION came to see me and to ask Dr Castellanos to specify pt's weight bearing status, called Dr Castellanos's office and as per his RN OBSERVATION, pt's wt bearing status is 20 pounds, asked to specify and she said that's the order for the pt- relayed to PT Eladio. Vital signs stable. IV leaking this PM, called in IV Nurse to re-site IV- night staff informed. Complained of pain, due PRN pain meds given as prescribed.
--- NOTE | 2019-06-03 01:02 | NUR ---
PATIENT IS ON CONTINOUS OXYGEN 2L NO SHORTNESS OF AIR OR DISTRESS NOTED THIS SHIFT. IV WAS PUT IN THIS SHIFT, PATIENT C/O OF IV HURTING WHEN SHE MOVES ARM, IV REINFORSED, IV RUNNING GOOD AT THIS TIME.PATIENT C/O CONSTIPATION STOOL SOFTNER GIVEN.PATIENT HAD PRUNE JUICE AND MIRALAX ON PREVIOUS SHIFT. PATIENT REFUSED FENTYL BECAUSE SHE DONT LIKE NARCOTIC AND WORRIED OF BEING CONSTIPATION. CALLED PET CREMATORY WORKER NEW ORDER OF TORDAL 15 X 1 DOSE. PATIENT IN BED ASLEEP AT THIS TIME BREATHING REGULAR AND UNLABOURED.
[2019-06-03 03:35] VITALS: BP 117/65
[2019-06-03 06:08] LABS: HEMATOCRIT 35.2 % (37.0-47.0)
[2019-06-03 06:10] LABS: HEMOGLOBIN 12.2 gm/dL (12.0-15.0)
[2019-06-03 06:38] LABS: CALCIUM 8.4 mg/dL (8.5-10.1); CREATININE 0.9 mg/dL (0.6-1.0)
[2019-06-03 07:26] VITALS: BP 117/68
[2019-06-03] MEDS ORDERED: ENOXAPARIN40 MG/0.1 SUBQ (09:42)
[2019-06-03] MEDS ORDERED: ACETAMINOPHEN325 M1 PO (09:45)
[2019-06-03] MEDS ORDERED: MIRALAX17 GM PO (09:45)
--- NOTE | 2019-06-03 11:57 | NUR ---
CARE TEAM INDICATED THAT PT IS MEDICALLY STABLE TO DC TO [facility]N ACUTE INPATIENT REHAB THIS DAY. CM SPOKE WITH PT AND SHE IS AWARE AND AGREEABLE. CM NOTIFIED HER FRIEND. REPORT TO BE CALLED TO . NO OTHER CM INTERVENTION INDICATED. CASE CLOSED.
--- NOTE | 2019-06-03 12:38 | NUR ---
Assumed pt care this am, it is on 2L of O2 but no shortness of air has been noted and O2 stats are within normal limits. Pt refuses to use her minh hose but will be sent with the pt. Pt had a large bm today whic h was her goal. Pt it very anxious when she needs to move and has complained of pain with movement, manged with medications. Pt verbalized that she does not like Fentanyl, mentioned that the DEPUTY PROBATION OFFICER at night gave her 1 dose of toradol and would change her pain meds to that vs fentanyl.IV not removed as per request of 5 noth rehab, FC removed as per order. PT and OT woorked with pt, is able to stay on the recliner for her meals. Partial weight bearing maintained. POC followed, no signs or verbalizations of distress have been noted. Pt is to move to [facility], report given, will be transferred after lunch.
== END 2019-06-03 13:58 | DRG 956 ==
LOC: ER 15:05 → EROBS 16:16 → 4W 16:16
PROVIDERS: Emergency Medicine; Nurse Practitioner Family; ADMIT Hospitalist
PROC: 0QS634Z Reposition Right Upper Femur with Internal Fixation Device, Percutaneous Approach (ICD-10-PCS; principal; 2019-06-01)
DX: S72.001A Fracture of unspecified part of neck of right femur, initial encounter for closed fracture (principal); S32.591A Other specified fracture of right pubis, initial encounter for closed fracture; E43 Unspecified severe protein-calorie malnutrition; I10 Essential (primary) hypertension; K21.9 Gastro-esophageal reflux disease without esophagitis; E78.5 Hyperlipidemia, unspecified; W01.0XXA Fall on same level from slipping, tripping and stumbling without subsequent striking against object, initial encounter; Z60.2 Problems related to living alone; K59.00 Constipation, unspecified; J44.9 Chronic obstructive pulmonary disease, unspecified; M19.90 Unspecified osteoarthritis, unspecified site; Z79.899 Other long term (current) drug therapy; Z88.2 Allergy status to sulfonamides; Z88.6 Allergy status to analgesic agent; Z88.0 Allergy status to penicillin; Z88.8 Allergy status to other drugs, medicaments and biological substances; Z87.891 Personal history of nicotine dependence; Y93.89 Activity, other specified; Y92.89 Other specified places as the place of occurrence of the external cause; Y99.8 Other external cause status
CPT/HCPCS: 10047; 50010; 50101; 50386; 51412; 51538; 52304; 53400; 53404; 56525; 57092; 62110; 62900; 70005

== ENCOUNTER 2019-06-03 10:11 | Inpatient (IN) | payer OTHER ==
[~2019-06-03] VITALS: Ht 162.6 cm; Wt 78.9 kg
[~2019-06-03 10:11] MED LIST changes: +ACETAMINOPHEN325 M1 PO; +ENOXAPARIN40 MG/0.1 SUBQ; +MIRALAX17 GM PO; +PRAVACHOL20 MG PO
[2019-06-03 14:00] VITALS: BP 117/84
--- NOTE | 2019-06-03 14:09 | NUR ---
chart review, pt new to acute rehab this afternoon. cm intro to dcp, team meeting with vol animals came for visit and pt asked to wait so she could see cat and dog. then after cont with cm visit. pt a & o x 3, able to make her needs know. she reported " live alone, only have 1 threshold to enter home then no stairs. no dme equip, was independent, manage own medication. drives vehicle and no past hh or rehab."/faizan. will cont following as needed for dc needs.
--- NOTE | 2019-06-03 15:06 | NUR ---
1415 ADMITTED TO ROOM 510. PATIENT IS ALERT AND ORIENTED X4. PATIENT HOLDEN'S, MOLD CLOSER HELPER ARE EQUAL. LUNGS ARE CLEAR. ABD IS SOFT WITH BSX4. PATIENT HAS RIGHT HIP DRESSING THAT IS DRY AND INTACT. FALL AND SAFETY PROTOCOLS IN PLACE. DENIES ANY PAIN AT THIS TIME. CALL LIGHT IS IN REACH. PT/OT/ST WILL DO EVALS IN A.M. WILL CONTINUE TO MONITER.
[2019-06-03 19:45] VITALS: BP 127/76
--- NOTE | 2019-06-04 02:45 | NUR ---
assumed care at approx 1900 evening 06/03. pt alert and oriented x4, somewhat forgetful, pleasant and cooperative. pt assist up to bsc to void. pt took [place] earlier and stated it made her feel too drowsy. BINDER SORTER page and dcd. Tylenol ordered and given just now for pain. pt also worried she has a uti because she feels she is going to bathroom too many times in night. ua collected and order recd for ua, urine c & s. to be sent to lab. otherwise pt sleeping soundly in between bsc voids. bed alarm on and call light in reach. will continue to monitor.
[2019-06-04 05:27] LABS: URINE BILIRUBIN NEGATIVE (Negative); URINE BLOOD NEGATIVE (Negative); URINE CLARITY CLEAR; URINE COLOR YELLOW; URINE GLUCOSE-RANDOM* NEGATIVE (Negative); URINE KETONES NEGATIVE (Negative); URINE LEUKOCYTES TRACE (Negative); URINE NITRITE NEGATIVE (Negative); URINE PROTEIN (DIPSTICK) NEGATIVE (Negative); URINE UROBILINOGEN 0.2 E.U./dl (0.2-1.0)
[2019-06-04 05:40] LABS: HEMOGLOBIN 12.6 gm/dL (12.0-15.0); MCH 31.5 pg (26.0-34.0); MCHC 34.2 g/dL (28.0-37.0); RBC 4.02 mil/uL (4.20-5.00); WBC 6.8 thou/uL (4.0-11.0)
[2019-06-04 05:43] LABS: CALCIUM 9.2 mg/dL (8.5-10.1); CREATININE 0.9 mg/dL (0.6-1.0); POTASSIUM 4.1 mmol/L (3.5-5.1)
[2019-06-04 07:25] VITALS: BP 128/77
--- NOTE | 2019-06-04 11:58 | NUR ---
Nutrition: pt admitted with hip fx, right femoral neck fx, S/P IMN to rehab unit. Consult received. pt eating well, > 75% of meals. Stable weights. On regular diet, MVI. Vitamin D level pending. Does limit breads and some starches so encouraged ordering meals PRN. Consider low nutrition risk.
--- NOTE | 2019-06-04 18:51 | NUR ---
ASSUMED CARE OF PT AT APPROX 0700. PT IS ALERT AND ORIENTED X4. DENIES SOA. PAIN TREATED PRN WITH RELIEF. EVEN NON LABORED BREATHING. VSS, ASSESSMENT CHARTED. PT DOING WELL WITH WORKING ON PERFORMING SELF CARE INDEPENDENTLY OR WITH MINIMAL HELP. NAD NOTED. DENIES CURRENT CONCERNS. WILL CONT. TO MONITOR.
[2019-06-04 19:19] VITALS: BP 133/88
--- NOTE | 2019-06-05 03:19 | NUR ---
Assumed pt care at 1900. Pt A/OX4,VSS. Continent of B&B, Up with moderate assist RW/GB to use BSC. Pt c/o pain to Right hip/back not reliefed by Tylenol, PRN Ibuprofen 400mg order obtained and administered with relief reported. PROM encouraged as pt reports feeling stiff allover when lying down. Resting quietly at this time with no distress noted,will continue to monitor pt.
[2019-06-05 07:30] VITALS: BP 111/84
[2019-06-05 19:30] VITALS: BP 109/60
--- NOTE | 2019-06-05 21:09 | NUR ---
ASSUMED CARE OF PT AT 0715. PT IS A&OX4, VITAL SIGNS STABLE. PT REQUESTED IBUPROFEN TO MANAGE PAIN, AND WAS ABLE TO PARTICIPATE IN SCHEDULED THERAPIES. DRESSING TO RLE FELL OFF THIS MORNING AND WAS REPLACED WITH [place] DRESSING. DAINA IN PLACE AT SURGICAL SITE, WELL APPROXIMATED, AND W/O REDNESS, EDEMA, OR DRAINAGE. PT REPORTED SMALL AREA OF BLEEDING ON PANNUS, THIS NURSE AND RIBBON SWEATBAND OPERATOR LOOKED AT THE SITE AND NOTED THAT IT WAS A LOVENOX INJECTION SITE AND INSTRUCTED PT TO APPLY FIRM PRESSURE TO SITE FOR MINUMUMN 5 MINUTES OR UNTIL SITE STOPPED BLEEDING. THIS NURSE FOLLOWED UP AFTER PT THERAPY AND SITE HAD STOPPED BLEEDING. PT UP FREQUENTLY TO TOILET. FALL PRECAUTIONS IN PLACE AND NURSING WILL CONTINUE TO MONITOR.
--- NOTE | 2019-06-06 03:20 | NUR ---
assumed care at approx 1900 evening 06/05. pt sitting up in bed at change of shift watching tv. pt alert and oriented x4, appropriate and cooperative. pt denies need for pain med and declined scheduled Tylenol. pt up to bsc with standby assist. pt appears to be sleeping soundly with hourly rounding checks. bed alarm on and call light in reach. will continue to monitor.
[2019-06-06 07:30] VITALS: BP 130/83
--- NOTE | 2019-06-06 09:19 | NUR ---
ASSUMED Care at 0700. PATIENT IS ALERT AND ORIENTED X4. PATIENT HOLDEN'S, PATIENT HAS RIGHT HIP DRESSING THAT IS DRY AND INTACT. LUNGS ARE CLEAR. ABD IS SOFT WITH BSX5. UP TO BSC TO VOID ZIYAD COLORED URINE. UP IN W/C. FALL AND SAFETY PROTOCOLS IN PLACE. C/O RIGHT HIP PAIN. MEDICATED WITH PRN PAIN MED. CONTINUES TO PROGRESS SLOWLY TOWARDS D/C GOALS. WILL CONTINUE TO MONITER.
[2019-06-06 20:00] VITALS: BP 139/78
--- NOTE | 2019-06-07 02:09 | NUR ---
ASSESSMENT: PT REMAIN ALERT AND ORIENT TIMES FOUR. UP TO BSC WITH GB AND WALKER. FOLLOW THERAPIES INSTRUCTIONS ON HOW TO SIT ON TOILET. VSS, AFBRILE. C/O RIGHT HIP PAIN, PRN AND SCHEDULED PAIN MEDICATIONS GIVEN WITH GOOD RESULTS. RT TX Q 4. PT LIKES MOTRIN FOR PAIN BETTER THAN TYLENOL. FREQUENT VISITS TO BSC. NO BM THIS SHIFT. TOLERATING PO INTKE. SLOW PROGRESS TOWARDS DC GOALS, WILL CONTINUE TO MONITOR.
[2019-06-07 08:00] VITALS: BP 114/58
--- NOTE | 2019-06-07 09:07 | NUR ---
ASSUMED CARE AT 0700. PATIENT IS ALERT AND ORIENTED X4. PATIENT HOLEDN'S, ROAD DRIVER ARE EQUAL. PATIENT HAS RIGHT HIP INCISION. [place] BANDAID CHANGED. DAINA ARE DRY AND INTACT. PATIENT UP IN SIDE OF BED FOR MEALS. PATIENT IS TOE TOUCH WEIGHT BEARING ON RIGHT. PATIENT IS UP TO BSC TO VOID AND HAVE BM TODAY. FALL AND SAFETY PROTOCOLS IN PLACE. C/O RIGHT HIP PAIN. MEDICATED WITH PRN PAIN MEDS. CONTINUES TO PROGRESS TOWARDS D/C GOALS. WILL CONTINUE TO MONITER.
[2019-06-07 19:48] VITALS: BP 118/72
--- NOTE | 2019-06-08 02:11 | NUR ---
ASSUMED CARES AT 1900. PT AWAKE, ALERT AND ORIENTED*4. C/O MILD RIGHT HIP PAIN, ACETAMINOPHEN ADMINISTERED ORDERED. VITALS REMAIN STABLE. DRESSING ON RIGHT HIP REMAINS DRY AND INTACT. PT UP MULTIPLE TIMES TO URINATE, UA POSITIVE, ANTIBIOTIC ORDERS RECEIVED TO START TOMORROW. PT REMAINS TTWB, UP WITH 1 MIN ASSIST GAITBELT AND WALKER AND TOLERATED WELL. Q1H VISUAL CHECKS. CALL LIGHT WITHIN REACH. FALL PRECAUTIONS IN PLACE
[2019-06-08 07:35] VITALS: BP 105/84
[2019-06-08 12:49] VITALS: BP 160/75
--- NOTE | 2019-06-08 15:34 | NUR ---
I have reviewed the documentation by KANDIS MCGEE from 06/08/19 to 06/08/19 and I concur with it. RAIMUNDO YATES, PT, DPT
--- NOTE | 2019-06-08 15:34 | NUR ---
I have reviewed the documentation by KANDIS MCGEE from 06/05/19 to 06/05/19 and I concur with it. RAIMUNDO YATES, DPT, PT
[2019-06-08 19:52] VITALS: BP 133/55
--- NOTE | 2019-06-08 19:59 | NUR ---
PATIENT ALERT AND ORIENTED AND VERY SPIRITUAL. PATIENT STATED WENT TO [facility] AND LEARNED ABOUT RELEASING FEAR PROBLEMS ECT. AND INDICATED IT WORKS FOR ANIMALS/PETS. PATIENT COOPERATIVE WITH PLAN OF CARE AND NO PAIN ISSUES TODAY AND MAINTAINED ORTHOPEDIC PRECAUTIONS.
--- NOTE | 2019-06-09 02:52 | NUR ---
ASSUMED CARES AT 1900. PT AWAKE, ALERT AND ORIENTED*4. DENIES PAIN. VITALS STABLE. INCISION ON HIP RIGHT REMAINS DRY AND DRESSING IS INTACT. PT REMAINS TTWB ON RLE AND TOLERATES WELL. UP TO BEDSIDE COMMODE TO VOID MULTIPLE TIMES. Q1H VISUAL CHECKS. CALL LIGHT WITHIN REACH. FALL PRECAUTIONS IN PLACE
--- NOTE | 2019-06-09 14:04 | NUR ---
team meeting, recommendation: daily dressing hip incision. po abx for uti. hh ( nursing ,pt, ot,), wheel chair, need get own fww and shower chair
--- NOTE | 2019-06-09 15:30 | NUR ---
I have reviewed the documentation by KANDIS MCGEE from 06/09/19 to 06/09/19 and I concur with it. RAIMUNDO YATES, PT, DPT
[2019-06-09 19:15] VITALS: BP 132/76
--- NOTE | 2019-06-09 20:45 | NUR ---
ASSUMED CARE OF PT AT 0715. PT IS A&OX4 AND VITAL SIGNS ARE STABLE. PT DENIES PAIN THIS SHIFT AND PARTICIPATED IN SCHEDULED THERAPIES. DRESSING TO THE RIGHT HIP IS C/D/I, DAINA INTACT, WELL APPROXIMTED, SITE WITHOUT REDNESS, WARMTHM, DRAINAGE, OR EDEMA. PT TOLERATING PO ANTIBIOTIC FOR UTI. FALL PRECAUTIONS IN PLACE AND NURSING WILL CONTINUE TO MONITOR.
--- NOTE | 2019-06-10 03:29 | NUR ---
PT ALERT AND ORIENTED X 4. AMB TO BR WITH WALKER AND ASSIST X 1 WITHOUT DIFFICULTY. RIGHT HIP DRESSING C/D/I. C/O PAIN IN RIGHT HIP. IBUPROFEN GIVEN X 1 AND PT SLEEPING UPON REASSESSMENT. BED ALARM ON FOR SAFETY. PT APPEARS TO BE SLEEPING ON HOURLY ROUNDS.
[2019-06-10 07:45] VITALS: BP 96/62
--- NOTE | 2019-06-10 16:05 | NUR ---
I have reviewed the documentation by KANDIS MCGEE from 06/10/19 to 06/10/19 and I concur with it. RAIMUNDO YATES, PT, DPT
[2019-06-10 19:35] VITALS: BP 124/79
--- NOTE | 2019-06-10 20:09 | NUR ---
ASSUMED CARE OF PT AT 0715. PT IS A&OX4 AND VITAL SIGNS ARE STABLE. PT PT REPORTED PAIN IN SHOULDERS BILATERALLY AND WAS TREATED WITH PO MEDICATIONS, PARTICIPATED IN SCHEDULED THERAPIES. DRESSING TO RLE SURGICAL SITE C/D/I. BLOOD PRESSURE DECREASED THIS SHIFT, PT ASYMPTOMATIC. PT TOLERATING PO ANTIBIOTICS FOR UTI. FALL PREACUATIONS IN PLACE AND NURSING WILL CONTINUE TO MONITOR.
[2019-06-10 20:30] VITALS: BP 132/88
--- NOTE | 2019-06-11 04:03 | NUR ---
ASSUMED CARE AT APPROX 1900 EVENING 06/10. PT ALERT AND ORIENTED X4, APPROPRIATE AND COOPERATIVE. PT UP TO BSC WITH 1 ASSIST TOLERATING WELL. PT TOOK HS MEDS WITH WATER NO PROBLEMS. PT APPEARS TO BE SLEEPING SOUNDLY WITH HOURLY ROUNDING CHECKS. BED ALARM ON AND CALL LIGHT IN REACH. WILL CONTINUE TO MONITOR.
[2019-06-11 07:16] VITALS: BP 144/75
--- NOTE | 2019-06-11 08:55 | NUR ---
Nutrition: Pt seen for follow up. Continues to eat extremely well. Averaging 95% of meals the last 5 days. She orders alternative menu items as she does not like all the potatoes otherwise. States meals are too large and come too close together. RD offered to request small portions, but pt denied the need to change anything. Found to be vitamin D deficient at 13.9 ng/mL and is now on 5,000 international units of cholecalciferol/day. Also on a MVI w/ minerals. Pt mainly eating protein and vegetables at meals; encouraged her to add in fruit and dairy too for healthy carbs. Pt agrees. Last documented BM 06/07? Is on a scheduled bowel regimen of docusate Na BID and daily Miralax. Denies any nutrition concerns. Great appetite. Low nutrition risk continues.
--- NOTE | 2019-06-11 13:18 | NUR ---
cm notified by nurse mutual fund manager that pt and friend at [facility] about being home alone and friend was getting ready to leave. when went to visit pt, friend was already having education from ot on pt mobility, use of microwave to cook and recommendation home with hh. faizan stated that ride not able to get her till sat rt holiday and is it ok to stay, she just giving up on me and wants me to go to correction"/faizan. active listen to pt and friend during visit. cm education with pt and friend that hh and wtb is not going to change nor is pt going to be able to stay in post acute for 6 weeks, " no i will be going home with wheel chair, i will not shower with out hh there and can use microwave to cook"/pt. cm passed on information to and ok for dc on sat, pt picked [facility] and [facility] 2nd choice. referral to be sent to [facility]. will cont following as needed for dc needs. 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
--- NOTE | 2019-06-11 14:45 | NUR ---
DISCHARGE PLANNING. DISCHARGE PLANNED FOR SATURDAY, PER UNIT CM. PATIENT TO DISCHARGE TO HOME WITH HOME HEALTH SERVICES. REFERRAL FAXED TO [facility] FOR PATIENTS HOME HEALTH NEEDS. CALL PLACED TO ZAINAB, [facility], TO NOTIFY. ZAINAB TO REVIEW REFERRAL AND NOTIFY CM. FOLLOWING.
--- NOTE | 2019-06-11 15:53 | NUR ---
I have reviewed the documentation by KANDIS MCGEE from 06/11/19 to 06/11/19 and I concur with it. RAIMUNDO YATES, PT, DPT
--- NOTE | 2019-06-11 20:05 | NUR ---
ASSUMED CARE OF PT AT 0715. PT IS A&OX4 AND VITAL SIGNS ARE STABLE. PT REPORTS PAIN IN HER LEFT KNEE WHICH WAS MANAGED WITH PO MEDICAITONS, PARTICIPATED IN SCHEDULED THERPAIES. PT ENCOURAGED TO USE BATHROOM USING GAIT BELT AND WALKER. [place] DRESSING C/D/I OVER RLE SURGICAL SITE. PT CALLING APPROPRIATELY. PT REPORTED THAT HER ONLY RIDE HOME WILL BE UNABLE TO PICK HER UP UNTIL SATURDAY, NOTIFIED PHYLLIS IN CASE MANAGEMENT. FALL PRECAUTIONS IN PLACE AND NURSING WILL CONTINUE TO MONITOR.
[2019-06-11 20:15] VITALS: BP 124/79
--- NOTE | 2019-06-12 03:20 | NUR ---
PT ALERT AND ORIENTED X 4. AMB TO BR WITH WALKER AND ASSIST X 1 WITHOUT DIFFICULTY. RIGHT HIP DRESSING C/D/I. PT DENIES PAIN OR DISCOMFORT. BED ALARM ON FOR SAFETY. PT APPEARS TO BE SLEEPING ON HOURLY ROUNDS.
[2019-06-12 08:15] VITALS: BP 119/74
--- NOTE | 2019-06-12 11:02 | PLAN ---
[facility] [place] [address] REHAB UNIT PLAN OF CARE Name: CHENTE HAYES Room #: 510-P ADM IN M.R.#: [id number] Admission: 06/03/19 Attend Phys: Hilario Ferrell MD Discharge: Date of : 47 Report #: [id number] THIS REPORT FOR: //name// CC: Hilario Mena DATE OF SERVICE: 06/05/2019 PROGRESS NOTE AND OVERALL PLAN OF CARE SUBJECTIVE: The patient is seen back today in followup. She was in no distress. Last recorded temperature 97.4, pulse 85, respirations 18, blood pressure 133/88. Her hip incision appears to be intact. [place] are in place. No erythema was noted. No focal calf swelling. She can dorsiflex the right ankle. Transfers are min assist, gait min assist 15 feet front-wheeled walker. In occupational therapy, lower body dressing is mod assist. In speech therapy, she has functional cognition [id number] memory deficits. ASSESSMENT: 1. Right femoral neck fracture, status post intramedullary nail on 06/01/2019, less than 20 pounds weightbearing. 2. Hypertension. 3. Chronic obstructive pulmonary disease. 4. Deep venous thrombosis prophylaxis. 5. Degenerative arthritis. 6. Constipation with prior history of regular colonic. 7. History of intermittent falls. 8. Hyperlipidemia. 9. Pain control issues. PLAN: The overall plan of care is based on the preadmission screen, post-admission physician evaluation and information garnered from therapy assessments. 1. Estimated length of stay is at least 10 days to 14 days pending progress. 2. Medical prognosis is reasonably good. 3. Anticipated interventions includes the interdisciplinary acute inpatient rehabilitation program. 4. Anticipated functional outcomes would be for the patient to become modified independent with transfers, mobility and ADLs as well as improved cognition, so that she can return back to the home setting. 5. Discharge destination would be back to the home setting where she lives in an apartment. She had been fully independent, ambulatory without gait aids, still driving. 6. Expected therapy by discipline includes PT and OT along with speech 1 hour per day each five days a week throughout the duration of [place] [address] REHAB UNIT PLAN OF CARE Name: CHENTE HAYES Room #: 510-P [facility]#: [id number] Admission: 06/03/19 Attend Phys: Hilario Ferrell MD Discharge: Date of : 47 Report #: [id number] rehabilitation stay. We may be able to decrease down that speech therapy and concentrate more on the PT and OT. <ELECTRONICALLY SIGNED> By: Hilario Ferrell MD 06/12/19 [id number] Hilario Ferrell MD /nt
--- NOTE | 2019-06-12 11:02 | H ---
[facility] [place] [address] HISTORY AND PHYSICAL Name: CHENTE HAYES Room #: 510-P ADM IN M.R.#: [id number] Admission: 06/03/19 Attend Phys: Hilario Ferrell MD Discharge: Date of : 47 Report #: [id number] THIS REPORT FOR: //name// CC: Hilario Mena DATE OF SERVICE: 06/03/2019 HISTORY AND PHYSICAL AND POST-ADMISSION PHYSICIAN EVALUATION HISTORY OF PRESENT ILLNESS: The patient is a 73-year-old white female who was originally hospitalized on 05/31/2019 after a fall at home with inability to weightbear on her right lower extremity. She was found to have a right femoral neck fracture and underwent screw fixation on 06/01/2019, limited to 20 pounds weightbearing. The surgery was performed by Dr. Castellanos. She has been followed medically regarding her hypertension, has a history of COPD, on Advair. Complaints with constipation. She is on DVT prophylaxis. She has been getting breathing treatments. She is now felt to be medically ready for transfer for acute in-hospital inpatient rehabilitation. PAST MEDICAL HISTORY: Includes hypertension, degenerative arthritis, heart disease, lung disease with noted COPD, and hyperlipidemia. MEDICATIONS: Please see the full medication listing as noted. ALLERGIES: PENICILLIN, CODEINE, SULFA, TRAMADOL AND ANIMAL DANDER. FAMILY HISTORY: Noncontributory. SOCIAL HISTORY: Lives in low-income housing apartment, zero steps, alone, utilized no gait aid. She was independent with ADLs and IADLs, still driving. 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 She was reporting 1-2 falls this year without injury usually related to "clumsiness" REVIEW OF SYSTEMS: No current complaints of chest pain, shortness of breath or abdominal discomfort. PHYSICAL EXAMINATION: GENERAL: A 73-year-old white female in no obvious distress. VITAL SIGNS: Last recorded temperature 97.8, pulse 89, respirations 22, blood pressure is 128/77. The patient is alert. HEENT: Appeared to be benign. NEUROLOGIC: Cranial nerves are grossly intact. Facies are symmetric. CHEST: Sounded clear to auscultation. CARDIOVASCULAR: Regular rate and rhythm. ABDOMEN: Bowel sounds positive, nontender. [address] [address] HISTORY AND PHYSICAL Name: CHENTE HAYES Room #: 510-P [facility] IN M.R.#: [id number] Admission: 06/03/19 Attend Phys: Hilario Ferrell MD Discharge: Date of : 47 Report #: [id number] GENITOURINARY AND RECTAL: Deferred. EXTREMITIES: She does have functional range of motion of both upper extremities. Strength is grade 4 to 4-/5. DTRs are trace to 1. In her lower extremities, there is no focal calf swelling. Her right hip is dressed. She has discomfort moving that right lower extremity, can dorsiflex her right ankle. Left lower extremity reveals functional range of motion. Strength is probably a grade 4-/5. Tone appeared to be intact. She has been mod assist with sit to stand, has ambulated a short distance with a front-wheeled walker, mod assist, right lower extremity less than 20 pounds weightbearing. ASSESSMENT: A 73-year-old white female with the following problem list: 1. Right femoral neck fracture, status post intramedullary nail 06/01/2019, less than 20 pounds weightbearing. 2. Hypertension. 3. Chronic obstructive pulmonary disease. 4. Deep venous thrombosis prophylaxis. 5. Degenerative arthritis. 6. Constipation. The patient actually received frequent colonics premorbidly and took a laxative at home by the provider of the colonics. She is on a bowel regimen with Geriatrics and Internal Medicine following. 7. History of intermittent falls 1 to 2 times per year. 8. Hyperlipidemia. 9. Pain control issues. PLAN: The patient is admitted for acute in-hospital inpatient rehabilitation. From a postadmission physician evaluation perspective, there are no relevant changes since the preadmission screening. Please see the above review of prior and current medical and functional conditions and comorbidities. Please see the previous and current functional status. As far as risk of complications, the patient has multiple medical comorbidities as noted above. The initial plan of care involves the interdisciplinary acute inpatient rehabilitation program with goal of maximizing her functional independence, so she can hopefully return back to her prior living situation. Measurable functional goals would be for her to become modified independent with transfers, mobility, ADLs at a walker level, so she can return back to the home setting. Prognosis is reasonably good with estimated length of stay at least 10 days to 14 days pending progress. Potential barriers would include her multiple medical comorbidities and decreased functional status. The patient meets diagnostic criteria for an acute in-hospital inpatient rehabilitation stay. She meets the medical necessity criteria and we will have the datapower consultant physicians continue to follow. She does have the tolerance for therapies and has appropriate discharge goals back to the home setting. <ELECTRONICALLY SIGNED> By: Hilario Ferrell MD 06/12/19 1102 [id number] Hilario Ferrell MD /nt
--- NOTE | 2019-06-12 14:00 | NUR ---
cm notified by pt that faizan friend had question about dcp and transportation. cm visited with pt and her friend nate already gone. cm called nate [phone] via phone call, education on dcp home with [facility], wheel chair from provider [facility]. 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 if friends could meal prep for her to use microwave at home. " yes we can , i will get laundry 1 x week"/nate. " thank you for talking with them again, its just better when come from you"/faizan. will cont following as needed for dc needs.
--- NOTE | 2019-06-12 14:37 | NUR ---
ASSUMED CARES AT 0700. PT AWAKE, ALERT AND ORIENTED *4. C/O OF RIGHT HIP PAIN, PAIN MEDS ADMINISTERED ORDERED. VITALS REMAIN STABLE. INCISION ON RIGHT HIP REMAINS DRY AND INTACT, PT REMAINS TTWB. UP WITH 1 MIN ASSIST, GB AND WALKER AND TOLERATED WELL. Q1H VISUAL CHECKS. CALL LIGHT WITHIN REACH. FALL PRECAUTIONS IN PLACE
--- NOTE | 2019-06-12 17:07 | NUR ---
I have reviewed the documentation by KANDIS MCGEE from 06/12/19 to 06/12/19 and I concur with it. KRISTY NICOLE, ELIANET
[2019-06-12 20:00] VITALS: BP 124/86
--- NOTE | 2019-06-13 02:42 | NUR ---
assumed care at approx 1900 evening 06/12. pt alert and oriented x4, pleasant and cooperative. pt up to bathroom to void with assist of 1 and walker with non wt bearing to right leg. pt appears to be sleeping soundly with hourly rounding checks. bed alarm on and call light in reach. will continue to monitor.
[2019-06-13 07:26] VITALS: BP 119/73
--- NOTE | 2019-06-13 15:16 | NUR ---
ASSUMED CARES AT 0700. PT AWAKE, ALERT AND ORIENTED*4. DENIES PAIN. VITALS REMAIN STABLE. INCISION ON HIP RIGHT REMAINS DRY AND INTACT, STAPLE REMAIN IN PLACE. DRESSING CHANGED. PT PARTICIPATED IN ALL THERAPY TODAY. PT REMAINS TTWB ON RLE AND TOLERATES WELL. SBA FOR AMBULATION AND TRANSFERS WITH GB AND WALKER. Q1H VISUAL CHECKS. CALL LIGHT WITHIN REACH. FALL PRECAUTIONS IN PLACE
--- NOTE | 2019-06-13 16:11 | HC ---
[facility] [place] [address] CONSULTATION Name: CHENTE HAYES Room #: 510-P ADM IN M.R.#: [id number] Admission: 06/03/19 Attend Phys: Hilario Ferrell MD Discharge: Date of : 47 Report #: [id number] THIS REPORT FOR: //name// CC: Hilario Mena DATE OF SERVICE: 06/07/2019 NEUROBEHAVIORAL STATUS EXAMINATION ATTENDING PHYSICIAN: Hilario Ferrell MD MAGNETIC DOCTOR: Maurilio Hoffman, PhD CLINICAL PRESENTATION: The patient is a 73-year-old female initially hospitalized on 05/31/2019 after a fall in her home and inability to bear weight in her right lower extremity. The patient was diagnosed with a right femoral neck fracture and underwent a screw fixation on 06/01/2019. She carries an admitting assessment of right femoral neck fracture, status post intramedullary nailing, hypertension, chronic obstructive pulmonary disease, deep venous thrombosis prophylaxis, degenerative arthritis, constipation, history of intermittent falls, hyperlipidemia and pain control issues. A complete description of her medical condition and history along with medications can be found in her medical record. Neuropsychological consultation was requested to provide assistance in the assessment of cognitive and emotional status and to provide recommendations and services. Prior to this most recent admission, she was living independently in her own home. She sustained her injury while dog sitting. She tripped on going from one room to another. The patient is a high school graduate. 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 She does live alone and has no children. The patient is estranged from her sister who lives in [place]. TECHNIQUES UTILIZED: Clinical interview, review of medical records, staff consultation and behavioral observation, mini mental status exam 2 standard version, clock drawing. EXAMINATION FINDINGS: The patient was alert and cooperative with the assessment. She accurately described events surrounding her admission. There is no evidence of aphasia. Her thoughts are logical and goal oriented. There is no evidence of thought disorder. She does not report suicidal ideation. She does not report symptoms of anxiety, depression, difficulty with memory or verbal fluency. She states her energy level, sleep and appetite are all within normal limits. The patient does acknowledge having had increased anxiety upon her initial fall. [facility] [address] [place] [address] CONSULTATION Name: CHENTE HAYES Room #: 510-P [facility] IN .R.#: [id number] Admission: 06/03/19 Attend Phys: Hilario Ferrell MD Discharge: Date of : 47 Report #: [id number] Performance on the MMSE 2 brief version is within normal limits with a raw score of 14 of 16 and a T score of 44. Performance on the MMSE 2 standard version was a raw score of 24, which is a T score of 38 and percentile rank of 12. The patient was 1/5 for serial 7's. She was 2/2 for naming, 1/1 for repetition, 3/3 for auditory comprehension. She could copy a simple geometric design. Clock drawing was within normal limits. The patient appears to be presenting with some mild deficits in sustained concentration and immediate recall. She does not subjectively described difficulty with memory. DIAGNOSTIC IMPRESSION: Unspecified anxiety disorder. The patient may have subtle difficulty in cognitive functioning. RECOMMENDATIONS: The patient reports her mood as having improved. She voiced anxiety, initially, but feels like that it has resolved. Her concern is primarily with ability to maintain the previous level of her independent living upon her discharge home. While, she does not describe neurocognitive deficits. there appears to be an increased variability in cognition. She reports having a supportive peer network that can provide adequate assistance is necessary. Utilizing increased environmental supports will likely be of benefit to maintain safety. Thank you very much for allowing me to provide the consultation on this patient. <ELECTRONICALLY SIGNED> By: Maurilio Hoffman, PhD 06/13/19 [id number] Maurilio Hoffman, PhD /nt
[2019-06-13 19:30] VITALS: BP 124/66
--- NOTE | 2019-06-14 02:31 | NUR ---
PT ALERT AND ORIENTED X 4. AMB TO BR WITH WALKER AND ASSIST X 1 WITHOUT DIFFICULTY. RIGHT HIP INCISION C/D/I WITH STERI-STRIPS. PT DENIES PAIN OR DISCOMFORT. BED ALARM ON FOR SAFETY. PT APPEARS TO BE SLEEPING ON HOURLY ROUNDS.
[2019-06-14 07:45] VITALS: BP 102/70
--- NOTE | 2019-06-14 15:52 | NUR ---
ASSESSMENT CHARTED. PT ALERT AND ORIENTED. UP IN THE W/C THIS SHIFT. NO CONCERNS AT THIS TIME. WILL CONTINUE TO MONITOR. CALL LIGHT WITHIN REACH.
[2019-06-14 19:05] VITALS: BP 134/83
[2019-06-15 04:24] LABS: CALCIUM 9.3 mg/dL (8.5-10.1); CREATININE 0.8 mg/dL (0.6-1.0); POTASSIUM 3.7 mmol/L (3.5-5.1)
[2019-06-15 04:34] LABS: HEMATOCRIT 36.3 % (37.0-47.0); HEMOGLOBIN 12.2 gm/dL (12.0-15.0); MCHC 33.7 g/dL (28.0-37.0); RBC 3.95 mil/uL (4.20-5.00); RDW 13.2 % (10.5-14.5); WBC 8.9 thou/uL (4.0-11.0)
[2019-06-15 08:00] VITALS: BP 109/67
--- NOTE | 2019-06-15 09:40 | NUR ---
ASSUMED CARES AT 0700. PT AWAKE, ALERT AND ORIENTED*4. DENIES PAIN. VITALS REMAIN STABLE. INCISION ON RIGHT HIP REMAINS DRY AND INTACT, STERI STRIPS IN PLACE. PT REMAINS TTWB ON RLE AND TOLERATES WELL. UP WITH 1 SBA, GB AND WALKER. Q1H VISUAL CHECKS. CALL LIGHT WITHIN REACH. FALL PRECATIONS IN PLACE
[2019-06-15 19:41] VITALS: BP 112/68
--- NOTE | 2019-06-16 01:42 | NUR ---
assumed care at approx 1900 evening 06/15. pt lying in bed with head of bed elevated resting. pt c/o pain to both shoulders. pt given po Tylenol at hs for pain and appears to be sleeping soundly with hourly rounding checks. pt modified indepdent in room. advised pt to call for help if she feels she needs assistance in the night. no calls out yet to staff. call light in reach. will continue to monitor.
[2019-06-16 07:00] VITALS: BP 103/68
--- NOTE | 2019-06-16 09:50 | NUR ---
ASSUMED CARE AT 0700. PATIENT IS ALERT AND ORIENTED X4. 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 LUNGS ARE CLEAR. ABD IS SOFT WITH BSX4. PATIENT IS MOD/I IN ROOM WITH WALKER. UP TO THE BATHROOM WITH WALKER AND TOE TOUCH WEIGHT BEARING ON HER RIGHT SIDE TO VOID ZIYAD COLORED URINE. UP ON SIDE OF BED FOR MEALS. FALL AND SAFETY PROTOCOLS IN PLACE. DENIES ANY PAIN AT THIS TIME. CONTINUES TO PROGESSS TOWARDS D/C GOALS. PLAN D/C TO HOME LATER TODAY. WILL CONTINUE TO MONITER.
--- NOTE | 2019-06-16 10:10 | NUR ---
patient will dc home today, transportation provided by [employer], vegetable picker today from 2 to 2:30pm. DP let Crystal on unit know of time and Crystal/mauricio know time. Patient has own wheelchair to go with. DP will fax dc orders to [facility] once they are in.
[2019-06-16] MEDS ORDERED: ASPIRIN325 PO (11:29)
[2019-06-16] MEDS ORDERED: TRAMADOL 50 MG50 MG PO (11:29)
[2019-06-16] MEDS ORDERED: VITAMIN D1000 UNI1 PO (11:30)
[2019-06-16 11:59] VITALS: BP 103/68
--- NOTE | 2019-06-16 12:15 | NUR ---
pt friend getting her bsc and walker. provider plus delivered her wheel chair. pt has been moved to this room and [facility]. pt requested transportation, discussed with cm custodian supervisor and ok to vouch for transportation home only x 1. veronica pt, ot, and nursing. transportation wheel chair from [employer] set up.
== END 2019-06-16 14:28 | disposition home health service (06) | DRG 536 ==
PROVIDERS: Nurse Practitioner Acute Care; Nurse Practitioner Family; ADMIT Physical Medicine & Rehabilitation
DX: S72.001A Fracture of unspecified part of neck of right femur, initial encounter for closed fracture (principal); N39.0 Urinary tract infection, site not specified; I10 Essential (primary) hypertension; J44.9 Chronic obstructive pulmonary disease, unspecified; W18.39XA Other fall on same level, initial encounter; M19.90 Unspecified osteoarthritis, unspecified site; E78.5 Hyperlipidemia, unspecified; F41.9 Anxiety disorder, unspecified; Z60.2 Problems related to living alone; K59.09 Other constipation; R26.81 Unsteadiness on feet; E55.9 Vitamin D deficiency, unspecified; B96.1 Klebsiella pneumoniae [K. pneumoniae] as the cause of diseases classified elsewhere; Y93.89 Activity, other specified; Y99.8 Other external cause status; Z91.81 History of falling; Z88.0 Allergy status to penicillin; Z88.6 Allergy status to analgesic agent; Z88.2 Allergy status to sulfonamides; Z88.8 Allergy status to other drugs, medicaments and biological substances; Z87.891 Personal history of nicotine dependence; Y92.89 Other specified places as the place of occurrence of the external cause
CPT/HCPCS: 10112